=== PATIENT | female | born 1990 | race American Indian/Alaskan Native ===

== ENCOUNTER 2019-10-30 14:31 | Emergency (ER) | payer OTHER ==
[2019-10-30 15:17] VITALS: BP 104/74
[2019-10-30 16:16] LABS: Hemoglobin 13.8 gm/dl (10.1-14.3); Mean Corpuscular HGB Conc 33 % (30-34); Mean Corpuscular Volume 84 fl (79-97); Platelet Count 152 K/mm3 (140-440); Red Blood Count 4.99 M/mm3 (3.65-5.03); Red Cell Distribution Width 15.4 % (13.2-15.2)
[2019-10-30 16:33] LABS: Alanine Aminotransferase 17 units/L (7-56); Albumin 4.4 g/dL (3.9-5); BUN/Creatinine Ratio 15; Blood Urea Nitrogen 17 mg/dL (7-17); Calcium 9.6 mg/dL (8.4-10.2); Hemolysis Index 10
[2019-10-30] MEDS ORDERED: ONDANSETRON 4 MG ODT TAB PO ONE (17:31)
[2019-10-30] MEDS ORDERED: IBUPROFEN 800 MG TAB PO ONE (17:31)
--- NOTE | 2019-10-30 17:34 | Emergency Department Report ---
Minor Respiratory - HPI Chief Complaint: Nausea/Vomiting/Diarrhea Stated Complaint: FLU SYMPTOMS Duration: 4 Days Pain Location: Throat, Chest Severity: moderate Minor Respiratory: Yes Sore Throat, Yes Able to Tolerate Fluids, Yes Cough, Yes Sick Contacts, Yes Fever, No Rhinorrhea, No Ear Pain, No Hemoptysis, No Chest Pain, No Shortness of Breath Other History: Afshan is a 29 yo female with hx of asthma who presents with flu symptoms since Saturday. She has chills, body aches, sore throat, non- productive cough, vomiting and diarhea. Multiple sick contacts at work. ED Review of Systems ROS: Stated complaint: FLU SYMPTOMS Other details as noted in HPI Constitutional: chills, fever, malaise ENT: throat pain, congestion Respiratory: cough. denies: shortness of breath, wheezing Cardiovascular: denies: chest pain Gastrointestinal: nausea, vomiting. denies: abdominal pain Musculoskeletal: back pain Neurological: denies: headache, weakness, numbness, paresthesias, confusion ED Past Medical Hx - Past Medical History Previous Medical History?: Yes Hx Asthma: Yes - Surgical History Past Surgical History?: No - Social History Smoking Status: Never Smoker Substance Use Type: None - Medications Home Medications: Home Medications Medication Instructions Recorded Confirmed Last Taken Type Cyclobenzaprine [Flexeril] 10 mg PO TID PRN #15 tablet 10/12/16 Unknown Rx Ibuprofen [Motrin] 800 mg PO Q8HR PRN #15 tablet 10/12/16 Unknown Rx Promethazine [Phenergan] 25 mg PO Q6HR PRN #10 tab 10/30/19 Unknown Rx Minor Respiratory Exam - Exam General: Vital signs noted. No distress. Alert and acting appropriately. HEENT: Yes Moist Mucous Membranes, No Pharyngeal Erythema, No Pharyngeal Exudates, No Rhinorrhea, No Conjuctival Injection Ear: Left EAC Discharge Neck: Yes Supple, No Adenopathy Lungs: Yes Good Air Exchange, No Wheezes, No Ronchi, No Stridor, No Cough, No Labored Respirations, No Retractions, No Use of Accessory Muscles, No Other Abnormal Lung Sounds Heart: Yes Regular, No Murmur Abdomen: Yes Normal Bowel Sounds, No Tenderness, No Peritoneal Signs Skin: No Rash, No Edema Neurologic: Alert and oriented, no deficits. Musculoskeletal: Unremarkable. ED Course Vital Signs 10/30/19 15:15 Temperature 99.7 F H Pulse Rate 87 Respiratory 22 Rate Blood Pressure 104/74 O2 Sat by Pulse 99 Oximetry ED Medical Decision Making - Lab Data Result diagrams: 10/30/19 15:24 10/30/19 15:24 - Medical Decision Making Clinical diagnosis influenza. Recommended rest hydration. Prescribed promethazine CBC chemistry was normal limits. benign neutropenia seen which is normal for race and Ginder. Critical care attestation.: If time is entered above; I have spent that time in minutes in the direct care of this critically ill patient, excluding procedure time. ED Disposition Clinical Impression: Influenza Disposition: DC-01 TO HOME OR SELFCARE Is pt being admited?: No Does the pt Need Aspirin: No Condition: Stable Instructions: Influenza (ED) Prescriptions: Promethazine [Phenergan] 25 mg PO Q6HR PRN #10 tab PRN Reason: Nausea Referrals: JALEESA STARK MD [Staff Physician] - as needed Forms: Work/School Release Form(ED)
[2019-10-30 17:43] LABS: Basophils % (Manual) 0 % (0.0-1.8); Total Cells Counted 100
[2019-10-30 17:44] LABS: Eosinophils % (Manual) 0 % (0.0-4.3); Large Platelets 1+; Platelet Estimate Consistent w Auto; RBC Morphology Normal
== END 2019-10-30 18:02 | disposition home or self-care (01) ==
LOC: ED 14:31
DX: J11.1 Influenza due to unidentified influenza virus with other respiratory manifestations (principal); J45.909 Unspecified asthma, uncomplicated; Z91.030 Bee allergy status; Z91.018 Allergy to other foods
CPT/HCPCS: 36415; 80053; 84703; 85007; 85025; Q0162

== ENCOUNTER 2022-06-20 11:56 | Emergency (ER) | payer OTHER ==
[2022-06-20] MEDS ORDERED: SODIUM CHLORIDE 0.9% 1000 ML 1,000 ML IV ONE (15:46)
[2022-06-20] MEDS ORDERED: ONDANSETRON 4 MG/2 ML INJ IV ONE (15:46)
[2022-06-20] MEDS ORDERED: ACETAMINOPHEN 500 MG TAB PO ONE (15:46)
[2022-06-20 16:36] LABS: Hematocrit 38.8 % (30.3-42.9); Hemoglobin 12.8 gm/dl (10.1-14.3); Mean Corpuscular HGB Conc 33 % (30-34); Mean Corpuscular Volume 81 fl (79-97); Platelet Count 136 K/mm3 (140-440); Red Cell Distribution Width 17.2 % (13.2-15.2)
[2022-06-20 17:00] LABS: Alanine Aminotransferase 14 units/L (7-56); Albumin 4.1 g/dL (3.9-5); BUN/Creatinine Ratio 12; Blood Urea Nitrogen 12 mg/dL (7-17); Calcium 8.8 mg/dL (8.4-10.2); Hemolysis Index 4
[2022-06-20] MEDS ORDERED: POTASSIUM CHLORIDE ER 20 MEQ TAB PO ONE (17:24)
--- NOTE | 2022-06-20 18:11 | Emergency Department Report ---
ED General Adult HPI - General Chief complaint: Nausea/Vomiting/Diarrhea Stated complaint: GENERAL SICKNESS Time Seen by Provider: 06/20/22 16:34 Source: patient Mode of arrival: Ambulatory Limitations: No Limitations - History of Present Illness Initial comments: 32-year-old female with no significant past medical history reports to the ER with with complaints of nausea vomiting and diarrhea, fatigue and body aches with shortness of breath for about 2 days. Patient states that she woke up 2 days ago with the symptoms. Patient denies any sick contacts and no suspicious food intake. Patient denies chest pain, abdominal pain. Patient reports no upper respiratory symptoms. Patient denies any rashes. Patient reports no other acute symptoms at this moment. Severity scale (0 -10): 5 - Related Data Previous Rx's Medication Instructions Recorded Last Taken Type Cyclobenzaprine [Flexeril] 10 mg PO TID PRN #15 tablet 10/12/16 Unknown Rx Ibuprofen [Motrin] 800 mg PO Q8HR PRN #15 tablet 10/12/16 Unknown Rx Promethazine [Phenergan] 25 mg PO Q6HR PRN #10 tab 10/30/19 Unknown Rx Ondansetron [Zofran Odt] 4 mg PO Q12HR PRN 4 Days #8 06/20/22 Unknown Rx tab.rapdis Sulfamethoxazole/Trimethoprim 1 each PO BID 5 Days #10 tab 06/20/22 Unknown Rx [Bactrim DS TAB] Allergies Allergy/AdvReac Type Severity Reaction Status Date / Time venom-honey bee Allergy Shortness Verified 06/20/22 12:36 [bee venom (honey bee)] of Breath mushroom Allergy Shortness Uncoded 06/20/22 12:36 of Breath ED Review of Systems ROS: Stated complaint: GENERAL SICKNESS Other details as noted in HPI Comment: All other systems reviewed and negative Respiratory: shortness of breath. denies: cough Gastrointestinal: nausea, vomiting, diarrhea. denies: abdominal pain Musculoskeletal: myalgia Neurological: weakness ED Past Medical Hx - Past Medical History Previous Medical History?: Yes Hx Asthma: Yes - Social History Smoking Status: Never Smoker Substance Use Type: Alcohol - Medications Home Medications: Home Medications Medication Instructions Recorded Confirmed Last Taken Type Cyclobenzaprine [Flexeril] 10 mg PO TID PRN #15 tablet 10/12/16 Unknown Rx Ibuprofen [Motrin] 800 mg PO Q8HR PRN #15 tablet 11/25/16 Unknown Rx Promethazine [Phenergan] 25 mg PO Q6HR PRN #10 tab 10/30/19 Unknown Rx Ondansetron [Zofran Odt] 4 mg PO Q12HR PRN 4 Days #8 06/20/22 Unknown Rx tab.rapdis Sulfamethoxazole/Trimethoprim 1 each PO BID 5 Days #10 tab 06/20/22 Unknown Rx [Bactrim DS TAB] ED Physical Exam - General Limitations: No Limitations General appearance: alert, in no apparent distress - Head Head exam: Present: atraumatic, normocephalic - Eye Eye exam: Present: normal appearance - ENT ENT exam: Present: mucous membranes moist - Neck Neck exam: Present: normal inspection - Respiratory Respiratory exam: Present: normal lung sounds bilaterally. Absent: respiratory distress, wheezes, rales, rhonchi - Cardiovascular Cardiovascular Exam: Present: regular rate, normal rhythm. Absent: systolic murmur, diastolic murmur, rubs, gallop - GI/Abdominal GI/Abdominal exam: Present: soft, normal bowel sounds. Absent: distended, tenderness, guarding, rebound - Extremities Exam Extremities exam: Present: normal inspection - Back Exam Back exam: Present: normal inspection - Neurological Exam Neurological exam: Present: alert, oriented X3 - Psychiatric Psychiatric exam: Present: normal affect, normal mood - Skin Skin exam: Present: warm, dry, intact, normal color. Absent: rash ED Course Vital Signs 06/20/22 06/20/22 12:29 21:53 Temperature 101.1 F H 98.8 F Pulse Rate 75 55 L Respiratory 15 16 Rate Blood Pressure 93/56 104/72 [Right] O2 Sat by Pulse 100 100 Oximetry - Reevaluation(s) Reevaluation #1: 06/20/22 21:23 On reassessment patient reports that she is feeling better patient denies any weakness, no shortness of breath, no headache. Patient reports her energy level is increased. Patient reports that the IV fluids and IV medication has helped her. Patient is stable to be discharged home. Patient heart rate was slightly low in the upper 40s to mid 50s. Patient does report no cardiac history. Patient does report that she runs a lot and is physically active on a daily basis. Patient denies any chest pain. Patient is asymptomatic with her heart rate. Patient heart rate at time of discharge is 55hr with a blood pressure of 104/59. ED Medical Decision Making - Lab Data Result diagrams: 06/20/22 16:14 06/20/22 20:19 - Radiology Data Radiology results: report reviewed [facility] [address] [place] [address] XRay Report Signed Patient: ALBERTA YEE MR#: [id number] : 1990 Acct:[id number] Age/Sex: 32 / F ADM Date: 06/20/22 Loc: ED Attending Dr: Ordering Physician: CLINT LÓPEZ NP Date of Service: 06/20/22 Procedure(s): XR chest 1V ap Accession Number(s): [id number] cc: CLINT LÓPEZ NP Fluoro Time In Minutes: CHEST 1 VIEW 06/20/2022 7:18 PM INDICATION / CLINICAL INFORMATION: SOB. COMPARISON: None available. FINDINGS: SUPPORT DEVICES: None. HEART / MEDIASTINUM: No significant abnormality. LUNGS / PLEURA: No significant pulmonary or pleural abnormality. No pneumothorax. ADDITIONAL FINDINGS: No significant additional findings. IMPRESSION: 1. No acute findings. Signer Name: Chucky Diaz MD Signed: 06/20/2022 7:36 PM Workstation Name: [id number] Transcribed By: BENNIE Dictated By: Chucky Diaz MD Electronically Authenticated By: Chucky Diaz MD Signed Date/Time: 06/20/221935 DD/ 35 TD/TT: - Medical Decision Making 32-year-old female with no significant past medical history reports to the ER with with complaints of nausea vomiting and diarrhea, fatigue and body aches with shortness of breath for about 2 days. Patient states that she woke up 2 days ago with the symptoms. Patient denies any sick contacts and no suspicious food intake. Patient denies chest pain, abdominal pain. Patient reports no upper respiratory symptoms. Patient denies any rashes. Patient reports no other acute symptoms at this moment. On physical exam no acute findings noted. No abdominal tenderness noted. No wheezing or abnormal breath sounds noted. Lungs are clear to auscultation. CMPpotassium was 2.8 patient given 40 mEq of potassium oral supplement here in ER. On recheck her potassium increased to 3.0. Patient informed to take oral potassium supplements from [id number] as well as multivitamins. Magnesium was 1.5patient informed to take magnesium supplements [id number] to help raise her magnesium level. Patient is asymptomatic with her magnesium level Urinalysis showed a slight UTI patient started on Bactrim twice daily for about 5 days. Remaining labs with no acute process noted. Chest x-ray negative. No further work-up is noted at this time. On reevaluation patient reports that she feels better and no longer reports nausea vomiting or diarrhea or fatigue and no body aches and no shortness of br eath. Patient agrees with plan of care and verbalized understanding. No further work-up is needed at this time patient is stable for discharge home. Vital Signs 06/20/22 06/20/22 12:29 21:53 Temperature 101.1 F H 98.8 F Pulse Rate 75 55 L Respiratory 15 16 Rate Blood Pressure 93/56 104/72 [Right] O2 Sat by Pulse 100 100 Oximetry Lab Results 06/20/22 06/20/22 06/20/22 Range/Units 16:14 16:14 16:14 WBC 3.5 L (4.5-11.0) K/mm3 RBC 4.80 (3.65-5.03) M/mm3 Hgb 12.8 (10.1-14.3) gm/dl Hct 38.8 (30.3-42.9) % MCV 81 (79-97) fl MCH 27 L (28-32) pg MCHC 33 (30-34) % RDW 17.2 H (13.2-15.2) % Plt Count 136 L (140-440) K/mm3 Sodium 139 (137-145) mmol/L Potassium 2.8 L* (3.6-5.0) mmol/L Chloride 102.3 (98-107) mmol/L Carbon Dioxide 22 (22-30) mmol/L Anion Gap 18 mmol/L BUN 12 (7-17) mg/dL Creatinine 1.0 (0.6-1.2) mg/dL Estimated GFR > 60 ml/min BUN/Creatinine Ratio 12 % Glucose 89 (65-100) mg/dL Calcium 8.8 (8.4-10.2) mg/dL Magnesium 1.50 L (1.7-2.3) mg/dL Total Bilirubin 0.60 (0.1-1.2) mg/dL AST 35 (5-40) units/L ALT 14 (7-56) units/L Alkaline Phosphatase 55 (35-129) units/L Total Protein 7.4 (6.3-8.2) g/dL Albumin 4.1 (3.9-5) g/dL Albumin/Globulin Ratio 1.2 % Lipase 31 (13-60) units/L Urine Color (Yellow) Urine Turbidity (Clear) Urine pH (5.0-7.0) Ur Specific Dil[place] (1.003-1.030) Urine Protein (Negative) mg/dL Urine Glucose (UA) (Negative) mg/dL Urine Ketones (Negative) mg/dL Urine Blood (Negative) Urine Nitrite (Negative) Ur Reducing Substances Urine Bilirubin (Negative) Urine Ictotest Urine Urobilinogen (<2.0) mg/dL Ur Leukocyte Esterase (Negative) Urine WBC (Auto) (0.0-6.0) /HPF Urine RBC (Auto) (0.0-6.0) /HPF U Epithel Cells (Auto) (0-13.0) /HPF Urine Mucus /HPF Urine HCG, Qual (Negative) 06/20/22 06/20/22 Range/Units 17:50 20:19 WBC (4.5-11.0) K/mm3 RBC (3.65-5.03) M/mm3 Hgb (10.1-14.3) gm/dl Hct (30.3-42.9) % MCV (79-97) fl MCH (28-32) pg MCHC (30-34) % RDW (13.2-15.2) % Plt Count (140-440) K/mm3 Sodium (137-145) mmol/L Potassium 3.0 L (3.6-5.0) mmol/L Chloride (98-107) mmol/L Carbon Dioxide (22-30) mmol/L Anion Gap mmol/L BUN (7-17) mg/dL Creatinine (0.6-1.2) mg/dL Estimated GFR ml/min BUN/Creatinine Ratio % Glucose (65-100) mg/dL Calcium (8.4-10.2) mg/dL Magnesium (1.7-2.3) mg/dL Total Bilirubin (0.1-1.2) mg/dL AST (5-40) units/L ALT (7-56) units/L Alkaline Phosphatase (35-129) units/L Total Protein (6.3-8.2) g/dL Albumin (3.9-5) g/dL Albumin/Globulin Ratio % Lipase (13-60) units/L Urine Color Yellow (Yellow) Urine Turbidity Cloudy (Clear) Urine pH 6.0 (5.0-7.0) Ur Specific Dil[place] 1.015 (1.003-1.030) Urine Protein 100 mg/dl (Negative) mg/dL Urine Glucose (UA) Negative (Negative) mg/dL Urine Ketones Trace (Negative) mg/dL Urine Blood Trace (Negative) Urine Nitrite Negative (Negative) Ur Reducing Substances Not Reportable Urine Bilirubin Negative (Negative) Urine Ictotest Not Reportable Urine Urobilinogen < 2.0 (<2.0) mg/dL Ur Leukocyte Esterase Trace (Negative) Urine WBC (Auto) 5.0 (0.0-6.0) /HPF Urine RBC (Auto) 1.0 (0.0-6.0) /HPF U Epithel Cells (Auto) 12.0 (0-13.0) /HPF Urine Mucus 3+ /HPF Urine HCG, Qual Negative (Negative) Critical care attestation.: If time is entered above; I have spent that time in minutes in the direct care of this critically ill patient, excluding procedure time. ED Disposition Clinical Impression: Weakness, Hypokalemia, Acute UTI, Viral syndrome Nausea & vomiting Qualifiers: Vomiting type: unspecified Qualified Code(s): R11.2 - Nausea with vomiting, unspecified Fever Qualifiers: Fever type: unspecified Qualified Code(s): R50.9 - Fever, unspecified Disposition: 01 HOME / SELF CARE / HOMELESS Is pt being admited?: No Condition: Stable Instructions: Nausea, Adult, Hypokalemia, Weakness, [id number], Nausea and Vomiting, Adult, [id number], Urinary Tract Infection, Adult, Viral Illness, Adult, Potassium Content of Foods Prescriptions: Sulfamethoxazole/Trimethoprim [Bactrim DS TAB] 1 each PO BID 5 Days #10 tab Ondansetron [Zofran Odt] 4 mg PO Q12HR PRN 4 Days #8 tab.rapdis PRN Reason: nausea Referrals: PRIMARY CARE, [Primary Care Provider] - 3-5 Days Forms: Work/School Release Form(ED) Time of Disposition: 21:25
[2022-06-20 18:49] LABS: Mucus,Urine 3+ /HPF
[2022-06-20 18:57] LABS: HCG Qualitative,Urine Negative (Negative)
[2022-06-20 18:58] LABS: Bilirubin,Urine Negative (Negative); Blood,Urine Trace (Negative); Color,Urine Yellow (Yellow); Urobilinogen,Urine < 2.0 mg/dL (<2.0)
--- NOTE | 2022-06-20 19:41 | XRay Report ---
CHEST 1 VIEW 06/20/2022 7:18 PM INDICATION / CLINICAL INFORMATION: SOB. COMPARISON: None available. FINDINGS: SUPPORT DEVICES: None. HEART / MEDIASTINUM: No significant abnormality. LUNGS / PLEURA: No significant pulmonary or pleural abnormality. No pneumothorax. ADDITIONAL FINDINGS: No significant additional findings. IMPRESSION: 1. No acute findings. Signer Name: Chucky Diaz MD Signed: 06/20/2022 7:36 PM Workstation Name: [id number]
[2022-06-20 21:54] VITALS: BP 104/72
== END 2022-06-20 21:54 | disposition home or self-care (01) ==
LOC: ED 11:56
DX: R53.1 Weakness (principal); E87.6 Hypokalemia; R50.9 Fever, unspecified; B37.49 Other urogenital candidiasis; Z91.018 Allergy to other foods; F10.20 Alcohol dependence, uncomplicated; J45.909 Unspecified asthma, uncomplicated
CPT/HCPCS: 36415; 71045; 80053; 81001; 81025; 83690; 83735; 84132; 85027; 96361; 96374; 99284; J2405; J7030